=== PATIENT | female | born 1965 | race Asian ===

== ENCOUNTER 2018-06-23 08:31 | Emergency (ER) | payer BC, OTHER ==
[~2018-06-23] VITALS: Ht 157.5 cm; Wt 63.5 kg
[2018-06-23 11:45] LABS: Basophils # (auto) 0 uL; Eosinophils % (auto) 0.5 % (0.0-7.0); Mean Corpuscular Hemoglobin 21.5 pg (28.0-32.0); Mean Corpuscular Hgb Conc. 31.6 g/dL (32.0-36.0); Nucleated Red Blood Cells % 0.1 %; Red Cell Distribution Width 15.3 % (11.8-14.3); White Blood Cell 9.8 10^3/uL (4.4-10.8)
[2018-06-23 11:47] LABS: Basophils % (auto) 0.5 % (0.0-2.0); Eosinophils # (auto) 0 uL; Hematocrit 42.2 % (36.0-46.0); Hemoglobin 13.3 g/dL (12.2-16.2); Lymphocytes % (auto) 10.5 % (10.0-50.0); Monocytes # (auto) 0.3 uL; Monocytes % (auto) 2.7 % (0.0-12.0); Neutrophils # (auto) 8.4 uL; Neutrophils % (auto) 85.8 % (37.0-80.0); Platelet Count (auto) 346 10^3/uL (140-450); Red Blood Cells 6.21 10^6/uL (4.0-5.20)
[2018-06-23 11:49] LABS: Albumin 3.7 g/dL (3.4-5.0); Anion Gap 6 (5-15); Blood Urea Nitrogen 15 mg/dL (7-18); Calcium 8.9 mg/dL (8.5-10.1); Carbon Dioxide 27 mmol/L (21-32); Chloride 104 mmol/L (98-107); Glucose 104 mg/dL (74-106); Magnesium 2.4 mg/dL (1.6-2.6); Potassium 3.9 mmol/L (3.5-5.1); Sodium 137 mmol/L (136-145)
[2018-06-23 11:54] LABS: Alanine Aminotransferase 28 U/L (13-56); Alkaline Phosphatase 110 U/L (45-117); Aspartate Aminotransferase 24 U/L (15-37); BUN/Creatinine Ratio 23.8; Bilirubin, Total 0.3 mg/dL (0.2-1.0); GFR African American 126 mL/min; GFR Non-African American 104 mL/min; Total Protein 8.5 g/dL (6.4-8.2)
[2018-06-23] MEDS ORDERED: ONDANSETRON ODT 4 MG TAB PO ONE (13:15)
[2018-06-23 13:45] LABS: INR 0.92 (0.9-1.15); Partial Thromboplastin Time 28.2 sec (23.78-33.04); Prothrombin Time 9.9 sec (9.27-12.13)
[2018-06-23] MEDS ORDERED: MECLIZINE HCL 25 MG TAB PO ONE (14:30)
[2018-06-23 14:31] VITALS: BP 141/90
== END 2018-06-23 18:00 | disposition home or self-care (01) ==
LOC: ER 08:31 → EDBD 08:31 → ER 18:00
DX: H81.10 Benign paroxysmal vertigo, unspecified ear (principal); N39.0 Urinary tract infection, site not specified; I10 Essential (primary) hypertension; Z90.49 Acquired absence of other specified parts of digestive tract; Z98.51 Tubal ligation status
CPT/HCPCS: 36415; 70450; 71045; 80053; 80320; 81002; 83735; 84484; 85025; 85610; 85730; 94761; 99284; J8597; Q0162